=== PATIENT | male | born 1955 | race Caucasian/White ===

== ENCOUNTER 2019-10-10 06:20 | Day surgery (SDC) | payer OTHER ==
[~2019-10-10 06:20] MED LIST: BENICAR40 MG PO
== END 2019-10-10 11:00 | disposition home or self-care (01) ==
LOC: CIR.AMB 06:20 → EDBD 08:15 → CIR.AMB 08:15 → ADM 10-12 08:00 → CIR.AMB 10-17 08:15
DX: G56.01 Carpal tunnel syndrome, right upper limb (principal); M19.041 Primary osteoarthritis, right hand